=== PATIENT | female | born 1995 | race Caucasian/White ===

== ENCOUNTER 2017-01-03 12:48 | Emergency (ER) | payer OTHER ==
[~2017-01-03] VITALS: Ht 157.5 cm; Wt 58.1 kg
[2017-01-03 12:50] VITALS: BP 96/60
== END 2017-01-03 13:13 | disposition home or self-care (01) ==
LOC: ED 12:48
DX: O26.893 Other specified pregnancy related conditions, third trimester (principal); J20.9 Acute bronchitis, unspecified; H66.91 Otitis media, unspecified, right ear; Z3A.24 24 weeks gestation of pregnancy

== ENCOUNTER 2017-06-18 13:57 | Emergency (ER) | payer OTHER ==
[2017-06-18 15:19] VITALS: BP 102/65
== END 2017-06-18 15:35 | disposition home or self-care (01) ==
LOC: ED 13:57
DX: G43.909 Migraine, unspecified, not intractable, without status migrainosus (principal); N39.0 Urinary tract infection, site not specified
CPT/HCPCS: 82962; J1200; J2765; J7030